=== PATIENT | female | born 1950 | race Caucasian/White ===

== ENCOUNTER 2020-02-25 08:48 | Inpatient (IN) ==
[2020-02-25] MEDS ORDERED: IOPAMIDOL 100 ML BOTTLE IV ONE (08:49)
[2020-02-25] MEDS ORDERED: 0.9 % SODIUM CHLORIDE 1,000 ML IV ONE (09:22)
[2020-02-25] MEDS ORDERED: LACTATED RINGERS 1,000 ML IV ONE (09:29)
[2020-02-25] MEDS ORDERED: ONDANSETRON 4 MG/2 ML VIAL IV ONE ×2 (09:29→13:25)
--- NOTE | 2020-02-25 09:33 | Emergency Department Note ---
Nausea/Vomiting/Diarrhea HPI General Chief complaint: Nausea/Vomiting/Diarrhea Stated complaint: vomiting Time Seen by Provider: 02/25/20 09:26 Source: patient Mode of arrival: ambulatory Limitations: no limitations History of Present Illness HPI Narrative: Narrative: This patient awoke in the night with some nausea and vomiting that has persisted this morning associated with watery diarrhea. No hematemesis hematochezia or melena. She is also having some abdominal cramping. She does have a history of bipolar disorder and has been having some trouble with manic episodes recently. She does have a caregiver here with her in the emergency room. They are little concerned about altered mental status but this patient seems reasonably alert to me. Patient does complain of slight shortness of breath but has had no cough and no chest pain. MD complaint: nausea, vomiting, diarrhea and abdominal pain Onset (ago): hour(s) Description of Vomiting: watery Description of Diarrhea: water Associated Abdominal Pain: Yes Location of pain: diffuse Severity: mild Quality: cramping Improves with: none Worsens with: none Associated symptoms: Reports shortness of breath Related Data Home Medications Medication Instructions Recorded Confirmed magnesium oxide 400 mg PO QAM tab 01/10/19 02/25/20 digoxin 125 mcg (0.125 mg) tablet 125 mcg PO QDAY 11/28/19 02/25/20 donepezil 10 mg tablet 10 mg PO QDAY 11/28/19 02/25/20 hydralazine 50 mg tablet 25 mg PO BID tab 11/28/19 02/25/20 memantine 5 mg tablet 5 mg PO BID 11/28/19 02/25/20 acetaminophen 325 mg tablet 650 mg PO QID 01/22/20 02/25/20 atorvastatin 10 mg tablet 10 mg PO QHS tab 01/22/20 02/25/20 docusate calcium 240 mg capsule 240 mg PO QHS 01/22/20 02/25/20 ergocalciferol (vitamin D2) 1,250 1,250 mcg PO Q48H 01/22/20 02/25/20 mcg (50,000 unit) capsule gabapentin 600 mg tablet 600 mg PO TID tab 01/22/20 02/25/20 levothyroxine 25 mcg capsule 25 mcg PO QAM cap 01/22/20 02/25/20 meloxicam 15 mg tablet 15 mg PO QAM tab 01/22/20 02/25/20 omeprazole 20 mg capsule,delayed 20 mg PO QAM cap 01/22/20 02/25/20 release oxybutynin chloride 15 mg 15 mg PO QAM tab 01/22/20 02/25/20 tablet,extended release 24 hr amantadine HCl 100 mg PO BID 02/25/20 02/25/20 benztropine 0.5 mg PO BID 02/25/20 02/25/20 lamotrigine 25 mg PO BID 02/25/20 02/25/20 losartan 25 mg PO BID 02/25/20 02/25/20 ziprasidone HCl 80 mg PO QPM 02/25/20 02/25/20 Allergies Allergy/AdvReac Type Severity Reaction Status Date / Time bacitracin Allergy Unknown Unknown Verified 02/25/20 08:52 [From Neosporin ([id number])] codeine Allergy Unknown Unknown Verified 02/25/20 08:52 divalproex sodium Allergy Unknown Unknown Verified 02/25/20 08:52 [From Depakote] doxycycline Allergy Unknown Unknown Verified 02/25/20 08:52 hydrocodone Allergy Unknown Unknown Verified 02/25/20 08:52 meperidine [From Demerol] Allergy Unknown Unknown Verified 02/25/20 08:52 milk Allergy Unknown Unknown Verified 02/25/20 08:52 Neomycin Allergy Unknown Unknown Verified 02/25/20 08:52 [From Neosporin ([id number])] olanzapine Allergy Unknown Unknown Verified 02/25/20 08:52 polymyxin B Allergy Unknown Unknown Verified 02/25/20 08:52 [From Neosporin ([id number])] sumatriptan [From Imitrex] Allergy Unknown Unknown Verified 02/25/20 08:52 seraquil Allergy Unknown Gum Uncoded 01/22/20 10:37 Irritation Review of Systems ROS ROS Narrative: Narrative: All systems ED: reviewed and negative except as stated. [facility] N[facility] Patient History Narrative: Narrative: Medical/Surgical/Family History All Active Problems (Updated 02/25/20 @ 14:41 by Dre Dunn MD) Acute UTI (Acute) Gastroenteritis (Acute) History of surgery (Acute) Anxiety disorder, unspecified (Acute) Essential (primary) hypertension (Acute) Unspecified chronic bronchitis (Acute) Post-traumatic stress disorder, chronic (Acute) Unspecified asthma, uncomplicated (Acute) Bipolar disorder, unspecified (Acute) Irritable bowel syndrome without diarrhea (Acute) Chronic SI joint pain (Acute) Coccygodynia (Acute) Sacroiliitis (Acute) Spondylosis without myelopathy or radiculopathy, lumbar region (Acute) Spondylosis without myelopathy or radiculopathy, lumbosacral region (Acute) Anorexia (Acute) Panic disorder with agoraphobia and moderate panic attacks (Acute) Bipolar disorder with psychotic features (Acute) Constipation (Chronic) Polyneuropathy (Chronic) Memory problem (Chronic) Hair loss (Chronic) Other constipation (Chronic) Hypothyroidism (Chronic) Mixed hyperlipidemia (Chronic) GERD (gastroesophageal reflux disease) (Chronic) Primary generalized (osteo)arthritis (Chronic) Vitamin D deficiency (Chronic) Osteoarthritis (Chronic) Mild cognitive impairment (Chronic) Stress incontinence, female (Chronic) Tobacco use (Chronic) Asthma (Chronic) IBS (irritable bowel syndrome) (Chronic) Trochanteric bursitis of both hips (Chronic) Low back pain (Chronic) Tardive dyskinesia (Chronic) Hiatal hernia (Chronic) Altered mental status (Chronic) Posttraumatic stress disorder (Chronic) Dependent personality disorder (Chronic) Panic disorder with agoraphobia (Chronic) Severe bipolar disorder with psychotic features (Chronic) Medical History (Updated 02/25/20 @ 14:41 by Dre Dunn MD) Altered mental status (Chronic) Anxiety disorder, unspecified (Acute) Asthma (Chronic) Bipolar disorder, unspecified (Acute) Chronic SI joint pain (Acute) Coccygodynia (Acute) Constipation (Chronic) Dependent personality disorder (Chronic) Essential (primary) hypertension (Acute) GERD (gastroesophageal reflux disease) (Chronic) Hair loss (Chronic) Hiatal hernia (Chronic) Hypothyroidism (Chronic) IBS (irritable bowel syndrome) (Chronic) Irritable bowel syndrome without diarrhea (Acute) Low back pain (Chronic) Memory problem (Chronic) Mild cognitive impairment (Chronic) Mixed hyperlipidemia (Chronic) Osteoarthritis (Chronic) Other constipation (Chronic) Panic disorder with agoraphobia (Chronic) Polyneuropathy (Chronic) Post-traumatic stress disorder, chronic (Acute) Posttraumatic stress disorder (Chronic) Primary generalized (osteo)arthritis (Chronic) Sacroiliitis (Acute) Severe bipolar disorder with psychotic features (Chronic) Spondylosis without myelopathy or radiculopathy, lumbar region (Acute) Spondylosis without myelopathy or radiculopathy, lumbosacral region (Acute) Stress incontinence, female (Chronic) Tardive dyskinesia (Chronic) Tobacco use (Chronic) Trochanteric bursitis of both hips (Chronic) Unspecified asthma, uncomplicated (Acute) Unspecified chronic bronchitis (Acute) Vitamin D deficiency (Chronic) Surgical History (Updated 01/22/20 @ 10:54 by Glenna Fernandez) History of colonoscopy (Chronic 07/24/15) History of shoulder surgery (Chronic) History of surgery (Acute) RFTC Oleg. L3-S1 w/sed 07/04/2019 MBB #2 Oleg. L3-S1 w/sed 05/08/2019 MBB #1 Rt. L3-S1 w/sed 03/05/2019 SI Joint Injection, Bilat w/o sed 12/20/2017 Hx of removal of ovary (Chronic) S/P bladder repair (Chronic) S/P hysterectomy (Chronic) Family History (Updated 01/04/19 @ 15:59 by Jessica Cuevas) Other No pertinent family history Social History Smoking Status: Current every day smoker Alcohol Intake Frequency: does not drink Substance Use: does not use Exam Narrative Narrative: Narrative: General Limitations: no limitations Head Head: atraumatic, normocephalic and normal inspection Eye Eye: Present normal appearance; Absent conjunctival injection ENT ENT: Present normal exam Chest Chest: Present normal inspection and symmetric chest wall rise Respiratory Respiratory: Present normal lung sounds bilaterally; Absent respiratory distress, rales/crackles and wheezes Cardiovascular Cardiovascular: Present regular rate, normal rhythm and normal heart sounds Adbominal Abdominal: Present soft and tenderness; Absent distention, guarding, rebound and rigidity Neurological Neurological: Present alert Psychiatric Psychiatric: Present flat affect Skin Skin: Present warm and dry; Absent diaphoresis Course Vital Signs Vital signs: Vital Signs Temperature 97.2 F 02/25/20 08:49 Pulse Rate 72 02/25/20 08:49 Respiratory Rate 18 02/25/20 08:49 Blood Pressure 137/69 02/25/20 08:49 Pulse Oximetry (%) 100 02/25/20 08:49 Temperature 97.2 F 02/25/20 08:49 Pulse Rate 63 02/25/20 12:36 Respiratory Rate 18 02/25/20 08:49 Blood Pressure 138/62 02/25/20 12:36 Pulse Oximetry (%) 99 02/25/20 12:36 MDM MDM Narrative Medical decision making narrative: Narrative: This patient does have a UTI and evidence of dehydration. CT scan of head and abdomen were negative. We did hydrate her and treat her with Levaquin. Does not appear to be septic. She will be admitted to the hospital. Lab Data Lab results reviewed: Yes I reviewed the patient's lab results. Result diagrams: 02/25/20 09:12 02/25/20 09:12 Labs: Lab Results 02/25/20 02/25/20 02/25/20 Range/Units 09:12 09:12 09:12 WBC 9.5 (4.50-11.00) K/mcL RBC 4.70 (3.59-5.38) M/mcL Hgb 13.8 (11.2-15.7) g/dL Hct 40.9 (34.1-44.9) % MCV 87.0 (80.0-100.0) fL MCH 29.4 (26.0-34.0) pg MCHC 33.7 (31.0-36.0) g/dL RDW 13.8 (11.5-14.5) % Plt Count 290 (140-440) K/mcL MPV 9.3 (7.4-10.4) fL Total Counted 100 Seg Neutrophils % 86 H (38-78) % Band Neutrophils % Not Reportable Lymphocytes % 10 L (15-49) % Monocytes % (Manual) 4 (1-12) % Platelet Estimate Normal (NORMAL) RBC Morphology Normal (NORMAL) VBG Lactic Acid (0.5-2.0) mmol/L Sodium 126 L (133-145) mmol/L Potassium 4.3 (3.3-5.1) mmol/L Chloride 85 L (96-108) mmol/L Carbon Dioxide 24 (22-30) mmol/L Anion Gap 17.0 H (8-16) BUN 9 (8-23) mg/dl Creatinine 0.6 (0.6-1.1) mg/dl GFR Calculation 94 Glucose 111 H (70-105) mg/dL Calcium 9.3 (8.6-10.4) mg/dl Total Bilirubin 0.5 (0.0-1.0) mg/dL AST 22 (0-37) U/l ALT 17 (0-40) U/l Alkaline Phosphatase 112 (39-117) U/L NT-Pro-B Natriuret Pep 4630.0 H (0-125) pg/ml Total Protein 6.9 (5.9-8.4) gm/dL Albumin 3.9 (3.2-5.2) gm/dL Globulin 3.0 (2.2-3.7) gm/dL Albumin/Globulin Ratio 1.3 (1.0-2.3) Lipase 12 (7-60) U/L Urine Color Urine Appearance Urine pH (5.0-9.0) Ur Specific [place] (1.000-1.035) Urine Protein (NEG) mg/dL Urine Glucose (UA) (NEG) mg/dL Urine Ketones (NEG) mg/dL Urine Occult Blood (<0.03) mg/dL Urine Nitrate (NEG) Urine Bilirubin (NEG) mg/dL Urine Urobilinogen (NEG) mg/dL Ur Leukocyte Esterase (NEG) /uL Urine RBC (0-1) /hpf Urine WBC (0-4) /hpf Ur Squamous Epith Cells (0-4) /hpf Urine Bacteria (0) /hpf Ur Culture Indicated? 02/25/20 02/25/20 Range/Units 09:44 10:31 WBC (4.50-11.00) K/mcL RBC (3.59-5.38) M/mcL Hgb (11.2-15.7) g/dL Hct (34.1-44.9) % MCV (80.0-100.0) fL MCH (26.0-34.0) pg MCHC (31.0-36.0) g/dL RDW (11.5-14.5) % Plt Count (140-440) K/mcL MPV (7.4-10.4) fL Total Counted Seg Neutrophils % (38-78) % Band Neutrophils % Lymphocytes % (15-49) % Monocytes % (Manual) (1-12) % Platelet Estimate (NORMAL) RBC Morphology (NORMAL) VBG Lactic Acid 1.1 (0.5-2.0) mmol/L Sodium (133-145) mmol/L Potassium (3.3-5.1) mmol/L Chloride (96-108) mmol/L Carbon Dioxide (22-30) mmol/L Anion Gap (8-16) BUN (8-23) mg/dl Creatinine (0.6-1.1) mg/dl GFR Calculation Glucose (70-105) mg/dL Calcium (8.6-10.4) mg/dl Total Bilirubin (0.0-1.0) mg/dL AST (0-37) U/l ALT (0-40) U/l Alkaline Phosphatase (39-117) U/L NT-Pro-B Natriuret Pep (0-125) pg/ml Total Protein (5.9-8.4) gm/dL Albumin (3.2-5.2) gm/dL Globulin (2.2-3.7) gm/dL Albumin/Globulin Ratio (1.0-2.3) Lipase (7-60) U/L Urine Color Yellow Urine Appearance Cloudy Urine pH 8.0 (5.0-9.0) Ur Specific [place] 1.005 (1.000-1.035) Urine Protein Neg (NEG) mg/dL Urine Glucose (UA) Negative (NEG) mg/dL Urine Ketones 20 A (NEG) mg/dL Urine Occult Blood 0.2 A (<0.03) mg/dL Urine Nitrate Pos A (NEG) Urine Bilirubin Neg (NEG) mg/dL Urine Urobilinogen Neg (NEG) mg/dL Ur Leukocyte Esterase 500 A (NEG) /uL Urine RBC 16 H (0-1) /hpf Urine WBC > 182 H (0-4) /hpf Ur Squamous Epith Cells 0 (0-4) /hpf Urine Bacteria Few A (0) /hpf Ur Culture Indicated? Yes Radiology Data Radiology results reviewed: Yes I reviewed the patient's radiology results. Discharge Plan Patient/Caregiver Discharge Instructions Pt seen by GENERAL INTERNAL MEDICINE DOCTOR/PA only: No Clinical Impression: Acute UTI, Gastroenteritis Patient Disposition: Xfer As Inpt ([facility]) Follow up with: Maral Palma ARNP [Primary Care Provider] - Prescriptions: No Action magnesium oxide 400 mg magnesium tablet 400 mg PO QAM RF: 0 memantine 5 mg tablet 5 mg PO BID RF: 0 digoxin 125 mcg (0.125 mg) tablet 125 mcg PO QDAY RF: 0 donepezil 10 mg tablet 10 mg PO QDAY RF: 0 hydralazine 50 mg tablet 25 mg PO BID RF: 0 acetaminophen 325 mg tablet 650 mg PO QID RF: 0 ergocalciferol (vitamin D2) 1,250 mcg (50,000 unit) capsule 1,250 mcg PO Q48H RF: 0 oxybutynin chloride 15 mg tablet extended release 24hr 15 mg PO QAM RF: 0 omeprazole 20 mg capsule,delayed release(DR/EC) 20 mg PO QAM RF: 0 levothyroxine 25 mcg capsule 25 mcg PO QAM RF: 0 gabapentin 600 mg tablet 600 mg PO TID RF: 0 atorvastatin 10 mg tablet 10 mg tablet 10 mg PO QHS RF: 0 meloxicam 15 mg tablet 15 mg PO QAM RF: 0 docusate calcium 240 mg capsule 240 mg PO QHS RF: 0 ziprasidone HCl 80 mg capsule 80 mg PO QPM RF: 0 benztropine 0.5 mg tablet 0.5 mg PO BID RF: 0 lamotrigine 25 mg tablet 25 mg PO BID RF: 0 amantadine HCl 100 mg Capsule 100 mg PO BID RF: 0 losartan 25 mg Tablet 25 mg PO BID RF: 0
[2020-02-25 09:53] LABS: Hematocrit 40.9 % (34.1-44.9); Hemoglobin 13.8 g/dL (11.2-15.7); Mean Corpuscular HGB Conc 33.7 g/dL (31.0-36.0); Mean Platelet Volume 9.3 fL (7.4-10.4); Platelet Count 290 K/mcL (140-440); Red Cell Distribution Width 13.8 % (11.5-14.5); WBC 9.5 K/mcL (4.50-11.00)
--- NOTE | 2020-02-25 09:57 | XRay Report ---
HISTORY: Short of breath FINDINGS: Overlying the costochondral junction of the right anterior first rib there is a vague 1 cm density. This could be calcification in the cartilage, parenchymal scar and underlying lung mass. The remainder the lung mcconnell are clear and well expanded. The heart size mediastinum and eugenio are normal. No pleural effusion is present. No prior study is available for comparison. IMPRESSION: Possible nodule in the right upper lobe. Additional workup is recommended with lateral chest x-ray and an apical lordotic view. Dr. Dunn was called with the results Interpreted and Authenticated by: Charles Jang 02/25/20
[2020-02-25 10:23] LABS: ALT/SGPT 17 U/l (0-40); AST/SGOT 22 U/l (0-37); Albumin 3.9 gm/dL (3.2-5.2); Albumin/Globulin Ratio 1.3 (1.0-2.3); Alkaline Phosphatase 112 U/L (39-117); Bilirubin,Total 0.5 mg/dL (0.0-1.0); Blood Urea Nitrogen 9 mg/dl (8-23); Calcium 9.3 mg/dl (8.6-10.4); Carbon Dioxide 24 mmol/L (22-30); Glomerular Filtration Rate 94; Glucose 111 mg/dL (70-105)
--- NOTE | 2020-02-25 10:24 | XRay Report ---
HISTORY: Port of breath, possible lung nodule in the right upper lobe seen on the preceding portable chest x-ray FINDINGS: The 1 cm nodular density overlying the costochondral junction of the right first rib on the preceding portable chest x-ray is no longer apparent. This was probably calcification of the cartilage of the rib. There is no evidence of an underlying lung mass. Incidentally noted is a moderate kyphotic curvature in the thoracic spine along with mild osteoarthritis. IMPRESSION: No evidence of a lung mass Interpreted and Authenticated by: Charles Jang 02/25/20
[2020-02-25 10:26] LABS: Chloride 85 mmol/L (96-108)
[2020-02-25 10:48] LABS: Lymphocytes % 10 % (15-49); Monocytes % (Manual) 4 % (1-12); Platelet Estimate NORMAL (NORMAL); RBC Morphology NORMAL (NORMAL); Segmented Neutrophils % 86 % (38-78)
[2020-02-25 11:44] LABS: Appearance,Urine CLOUDY; Bacteria,Urine FEW /hpf (0); Bilirubin,Urine NEG (NEG); Color,Urine YELLOW; Culture Indicated,Urine YES; Glucose,Urine (UA) NEGATIVE (NEG); Ketones,Urine 20 mg/dL (NEG); Leukocyte Esterase,Urine 500 /uL (NEG); Nitrate,Urine POS (NEG); Protein,Urine NEG (NEG); Specific Gravity,Urine 1.005 (1.000-1.035); Urine Blood 0.2 mg/dL (<0.03); Urine RBC 16 /hpf (0-1); Urine Squamous Epithelial Cell 0 /hpf (0-4); Urine WBC > 182 /hpf (0-4); Urobilinogen,Urine NEG (NEG)
[2020-02-25] MEDS ORDERED: LEVOFLOXACIN 750 MG/150 ML BAG IV ONE (11:53)
--- NOTE | 2020-02-25 14:01 | Cat Scan Report ---
History: Decreased level of consciousness, vomiting TECHNIQUE: The brain was imaged without contrast at 2.5 mm intervals. The radiation exposure was limited using dose reduction technology. FINDINGS: There is no evidence of infarct, hemorrhage, edema or mass effect. The ventricles and cisterns are normal. There is no significant atrophy. Bone windows show no skull lesion. There is moderate osteoarthritis in the temporal mandibular joints bilaterally, right worse than left. IMPRESSION: Normal brain Interpreted and Authenticated by: Charles Jang 02/25/20
--- NOTE | 2020-02-25 14:10 | Cat Scan Report ---
History: Abdominal pain nausea vomiting and diarrhea technique: Patient was imaged following intravenous but no oral contrast scanning during the portal venous phase and five minutes postinjection. Sagittal and coronal reformats were created. The radiation exposure was limited using dose reduction technology. FINDINGS: The lung bases are clear. There is a small hiatus hernia. The liver is normal in size. There are two small cysts, one is located inferiorly in segment 4B of the left lobe and the other is adjacent to the gallbladder segment five. These are both less than 1 cm in size. The liver is otherwise homogeneous. The gallbladder and bile ducts are normal. Pancreas is atrophic. There is no evidence of acute or chronic pancreatitis. The spleen is normal in size and homogeneous. The adrenals are normal. There is a 5 x 6 mm cyst centrally in the middle third of the left kidney. The kidneys are otherwise normal and there is no kidney stone, mass or hydronephrosis. Moderate amount calcified plaque is present in the aorta and iliac arteries. The aorta is normal in caliber. The bowel gas pattern is normal. The appendix is noninflamed. There is no evidence of diverticulitis inflammatory bowel disease or bowel obstruction. The uterus and ovaries are surgically absent. Urinary bladder is unopacified but appears normal. There is no mass, abscess or adenopathy or ascites are present within the abdomen or pelvis. There is a mild levoscoliotic curvature in the mid lumbar spine and mild arthritis. IMPRESSION: No acute abnormality Dr. Dunn was called with the results Interpreted and Authenticated by: Charles Jang 02/25/20
--- NOTE | 2020-02-25 14:59 | Internal Med History&Physical ---
HPI History of Present Illness Patient information: Note initiated : 02/25/20 at 2:51 pm Service Date, if different from initiated Date: [] Patient: Lena Baez a 69 y/o F admitted on for vomiting. Chief Complaint: [] History of present illness: Ms. Baez is a 69 year old F Mateo to the ED with nausea vomiting diarrhea. Patient does have history of mild cognitive impairment or early dementia. Patient is a poor historian. History is obtained from patient and chart as caregiver is unavailable at the moment. Sounds like she is*developed nausea vomiting yesterday and diarrhea. She describes the vomitus as yellow and clear. Diarrhea is watery and dark but no blood. She has a crampy abdominal pain. Per the family she has had some confusion. Per note she does have a history of at least mild cognitive impairment and sees Dr. Jasso and is on memory medications. Unable to tell if she is on new medication she seemed states she is on some new cardiac medications but cannot remember. She is on digoxin but unable to tell me if she has atrial fibrillation. In the ED she had a CT of the head and abdomen Jack which were unremarkable. She had urinalysis consistent with UTI. Patient does describe dysuria. Patient does live alone. Has occasional cough of clear sputum. Chest x-ray unremarkable. When I visited her she was alert and oriented x4 and in discussion with the nurse she seems to be clear but then occasionally seems confused. Review of Systems: Pertinent positives as above plus occasional headaches and occasional fever chills. Remaining 10 point review of system reviewed negative [facility] Medical History (Updated 02/25/20 @ 14:41 by Dre Dunn MD) Altered mental status (Chronic) Anxiety disorder, unspecified (Acute) Asthma (Chronic) Bipolar disorder, unspecified (Acute) Chronic SI joint pain (Acute) Coccygodynia (Acute) Constipation (Chronic) Dependent personality disorder (Chronic) Essential (primary) hypertension (Acute) GERD (gastroesophageal reflux disease) (Chronic) Hair loss (Chronic) Hiatal hernia (Chronic) Hypothyroidism (Chronic) IBS (irritable bowel syndrome) (Chronic) Irritable bowel syndrome without diarrhea (Acute) Low back pain (Chronic) Memory problem (Chronic) Mild cognitive impairment (Chronic) Mixed hyperlipidemia (Chronic) Osteoarthritis (Chronic) Other constipation (Chronic) Panic disorder with agoraphobia (Chronic) Polyneuropathy (Chronic) Post-traumatic stress disorder, chronic (Acute) Posttraumatic stress disorder (Chronic) Primary generalized (osteo)arthritis (Chronic) Sacroiliitis (Acute) Severe bipolar disorder with psychotic features (Chronic) Spondylosis without myelopathy or radiculopathy, lumbar region (Acute) Spondylosis without myelopathy or radiculopathy, lumbosacral region (Acute) Stress incontinence, female (Chronic) Tardive dyskinesia (Chronic) Tobacco use (Chronic) Trochanteric bursitis of both hips (Chronic) Unspecified asthma, uncomplicated (Acute) Unspecified chronic bronchitis (Acute) Vitamin D deficiency (Chronic) Surgical History (Updated 01/22/20 @ 10:54 by Glenna Fernandez) History of colonoscopy (Chronic 07/24/15) History of shoulder surgery (Chronic) History of surgery (Acute) RFTC Oleg. L3-S1 w/sed 07/04/2019 MBB #2 Oleg. L3-S1 w/sed 05/08/2019 MBB #1 Rt. L3-S1 w/sed 03/05/2019 SI Joint Injection, Bilat w/o sed 12/20/2017 Hx of removal of ovary (Chronic) S/P bladder repair (Chronic) S/P hysterectomy (Chronic) Family History (Updated 01/04/19 @ 15:59 by Jessica Cuevas) Other No pertinent family history Social History (Updated 12/24/19 @ 11:47 by Melissa David DO) household members: alone marital status: occupational status: retired physical activity: none smoking status: Current every day smoker tobacco type: cigarettes per day: 10 pack-years: 15 counseling given: provider counseling alcohol intake frequency: does not drink substance use type: does not use MEDS/ALLERGIES Home Medications and Allergies Home Medications Medication Instructions Recorded Confirmed Type magnesium oxide 400 mg PO QAM tab 01/10/19 02/25/20 History digoxin 125 mcg (0.125 mg) tablet 125 mcg PO QDAY 11/28/19 02/25/20 History donepezil 10 mg tablet 10 mg PO QDAY 11/28/19 02/25/20 History hydralazine 50 mg tablet 25 mg PO BID tab 11/28/19 02/25/20 History memantine 5 mg tablet 5 mg PO BID 11/28/19 02/25/20 History acetaminophen 325 mg tablet 650 mg PO QID 01/22/20 02/25/20 History atorvastatin 10 mg tablet 10 mg PO QHS tab 01/22/20 02/25/20 History docusate calcium 240 mg capsule 240 mg PO QHS 01/22/20 02/25/20 History ergocalciferol (vitamin D2) 1,250 1,250 mcg PO Q48H 01/22/20 02/25/20 History mcg (50,000 unit) capsule gabapentin 600 mg tablet 600 mg PO TID tab 01/22/20 02/25/20 History levothyroxine 25 mcg capsule 25 mcg PO QAM cap 01/22/20 02/25/20 History meloxicam 15 mg tablet 15 mg PO QAM tab 01/22/20 02/25/20 History omeprazole 20 mg capsule,delayed 20 mg PO QAM cap 01/22/20 02/25/20 History release oxybutynin chloride 15 mg 15 mg PO QAM tab 01/22/20 02/25/20 History tablet,extended release 24 hr amantadine HCl 100 mg PO BID 02/25/20 02/25/20 History benztropine 0.5 mg PO BID 02/25/20 02/25/20 History lamotrigine 25 mg PO BID 02/25/20 02/25/20 History losartan 25 mg PO BID 02/25/20 02/25/20 History ziprasidone HCl 80 mg PO QPM 02/25/20 02/25/20 History Allergies Allergy/AdvReac Type Severity Reaction Status Date / Time bacitracin Allergy Unknown Unknown Verified 02/25/20 08:52 [From Neosporin ([id number])] codeine Allergy Unknown Unknown Verified 02/25/20 08:52 divalproex sodium Allergy Unknown Unknown Verified 02/25/20 08:52 [From Depakote] doxycycline Allergy Unknown Unknown Verified 02/25/20 08:52 hydrocodone Allergy Unknown Unknown Verified 02/25/20 08:52 meperidine [From Demerol] Allergy Unknown Unknown Verified 02/25/20 08:52 milk Allergy Unknown Unknown Verified 02/25/20 08:52 Neomycin Allergy Unknown Unknown Verified 02/25/20 08:52 [From Neosporin ([id number])] olanzapine Allergy Unknown Unknown Verified 02/25/20 08:52 polymyxin B Allergy Unknown Unknown Verified 02/25/20 08:52 [From Neosporin ([id number])] sumatriptan [From Imitrex] Allergy Unknown Unknown Verified 02/25/20 08:52 seraquil Allergy Unknown Gum Uncoded 01/22/20 10:37 Irritation EXAM Constitutional Vitals: Temp Pulse Resp BP Pulse Ox 97.2 F 63 18 134/73 99 02/25/20 08:49 02/25/20 12:36 02/25/20 08:49 02/25/20 14:46 02/25/20 12:36 Exam: General: Alert, Awake, No acute Distress Eyes/N/T: EOMI, PERRL, dry MM Head/Neck: neck supple, normocephalic atraumatic CV: RRR, 2/6SM Pulm: Clear b/l, no wheezing/rhonchi/rales Abd: soft, nontender, +BS x4 Ext: no clubbing/cyanosis/edema Neuro: A&Ox4, no focal deficits, moves all extremities, CN 2-12 grossly intact, symmetrical strength b/l upper/lower, sensations intact b/l upper/lower Skin: warm/dry DATA Data Completed and Pending Labs on day of discharge: Labs from last 24 hours 02/25/20 02/25/20 02/25/20 10:31 09:44 09:12 WBC RBC Hgb Hct MCV MCH MCHC RDW Plt Count MPV Total Counted Seg Neutrophils % Band Neutrophils % Lymphocytes % Monocytes % (Manual) Platelet Estimate RBC Morphology VBG Lactic Acid 1.1 Sodium Potassium Chloride Carbon Dioxide Anion Gap BUN Creatinine GFR Calculation Glucose Calcium Total Bilirubin AST ALT Alkaline Phosphatase NT-Pro-B Natriuret Pep 4630.0 H Total Protein Albumin Globulin Albumin/Globulin Ratio Lipase 12 Urine Color Yellow Urine Appearance Cloudy Urine pH 8.0 Ur Specific Towner 1.005 Urine Protein Neg Urine Glucose (UA) Negative Urine Ketones 20 A Urine Occult Blood 0.2 A Urine Nitrate Pos A Urine Bilirubin Neg Urine Urobilinogen Neg Ur Leukocyte Esterase 500 A Urine RBC 16 H Urine WBC > 182 H Ur Squamous Epith Cells 0 Urine Bacteria Few A Ur Culture Indicated? Yes 02/25/20 02/25/20 09:12 09:12 WBC 9.5 RBC 4.70 Hgb 13.8 Hct 40.9 MCV 87.0 MCH 29.4 MCHC 33.7 RDW 13.8 Plt Count 290 MPV 9.3 Total Counted 100 Seg Neutrophils % 86 H Band Neutrophils % Not Reportable Lymphocytes % 10 L Monocytes % (Manual) 4 Platelet Estimate Normal RBC Morphology Normal VBG Lactic Acid Sodium 126 L Potassium 4.3 Chloride 85 L Carbon Dioxide 24 Anion Gap 17.0 H BUN 9 Creatinine 0.6 GFR Calculation 94 Glucose 111 H Calcium 9.3 Total Bilirubin 0.5 AST 22 ALT 17 Alkaline Phosphatase 112 NT-Pro-B Natriuret Pep Total Protein 6.9 Albumin 3.9 Globulin 3.0 Albumin/Globulin Ratio 1.3 Lipase Urine Color Urine Appearance Urine pH Ur Specific Towner Urine Protein Urine Glucose (UA) Urine Ketones Urine Occult Blood Urine Nitrate Urine Bilirubin Urine Urobilinogen Ur Leukocyte Esterase Urine RBC Urine WBC Ur Squamous Epith Cells Urine Bacteria Ur Culture Indicated? A/P Narrative A/P Narrative: A: *UTI: *AMS(confusion) superimposed on underlying cognitive impairment/early dementia: -follows with Dr. Gonzalez *Volume depletion: *N/V/D: Nonbloody, watery. likely gastroenteritis *Bipolar/PTSD: *Parkinsonism: *HTN: on hydralazine/ARB *Hypothyroidism: *GERD: *?PAF: on digoxin * P: -Rocephin pending UC -IVF -Antiemetics, stool studies pending -[employer] records -cont psych meds - -pt/ot -CM for placement -ppx: Lovenox/home PPI Time Spent With Patient Time: Total time spent is greater than 50% in coordination of care (as documented) at patient's floor/unit and/or counseling patient:
[2020-02-25 16:16] LABS: Digoxin 0.7 ng/mL
[2020-02-25] MEDS ORDERED: MAGNESIUM SULFATE 2 GM/50 ML BAG IV PRN (16:41)
[2020-02-25] MEDS ORDERED: METOCLOPRAMIDE 10 MG/2 ML VIAL IV PRN (16:41)
[2020-02-25] MEDS ORDERED: POTASSIUM CHLORIDE 20 MEQ TABLET PO PRN ×2 (16:41)
[2020-02-25] MEDS ORDERED: diphenhydrAMINE 50 MG/ML VIAL IV PRN (16:41)
[2020-02-25] MEDS ORDERED: 0.9 % SODIUM CHLORIDE 1,000 ML IV SCH (16:41)
[2020-02-25] MEDS ORDERED: IPRATROPIUM/ALBUTEROL 3 ML AMPUL.NEB NEB PRN (16:41)
[2020-02-25] MEDS ORDERED: POTASSIUM CHLORIDE 40 MEQ in DEXTROSE 5% IN WATER 500 ML IV PRN (16:41)
[2020-02-25] MEDS ORDERED: SENNOSIDES 1 TABLET PO PRN (16:41)
[2020-02-25] MEDS ORDERED: cefTRIAXone 1 GM in DEXTROSE 5% IN WATER 50 ML IV SCH (16:41)
[2020-02-25] MEDS: 0.9 % SODIUM CHLORIDE 10 ML SYRINGE IV SCH ×2 (17:34→22:13)
[2020-02-25] MEDS: ACETAMINOPHEN 325 MG TABLET PO SCH ×3 (17:38→22:02)
[2020-02-25] MEDS: cefTRIAXone 1 GM VIAL IV SCH (17:38)
[2020-02-25] MEDS: ZIPRASIDONE HCL 80 MG PO SCH (22:02)
[2020-02-25] MEDS: MEMANTINE 10 MG TABLET PO SCH (22:09)
[2020-02-25] MEDS: lamoTRIgine 25 MG TABLET PO SCH (22:10)
[2020-02-25] MEDS: GABAPENTIN 300 MG CAPSULE PO SCH (22:10)
[2020-02-25] MEDS: ATORVASTATIN 10 MG TABLET PO SCH (22:10)
[2020-02-25] MEDS: BENZTROPINE 1 MG TABLET PO SCH (22:10)
[2020-02-25] MEDS: hydrALAZINE 25 MG TABLET PO SCH (22:10)
[2020-02-25] MEDS: AMANTADINE HCL 100 MG CAPSULE PO SCH (22:10)
[2020-02-25] MEDS: DOCUSATE SODIUM 100 MG CAPSULE PO SCH (22:11)
[2020-02-25] MEDS: LOSARTAN 25 MG TABLET PO SCH (22:12)
[2020-02-25] MEDS: ONDANSETRON 4 MG/2 ML VIAL IV PRN (23:20)
[2020-02-26] MEDS: 0.9 % SODIUM CHLORIDE 10 ML SYRINGE IV SCH ×3 (04:42→21:28)
[2020-02-26] MEDS: OMEPRAZOLE 20 MG CAPSULE PO SCH (07:34)
[2020-02-26] MEDS: LEVOTHYROXINE 25 MCG TABLET PO SCH (07:34)
--- NOTE | 2020-02-26 07:46 | Internal Med Progress Note ---
SUBJECTIVE Subjective Patient information: Note initiated : 02/26/20 at 7:42 am Service Date, if different from initiated Date: [] Patient: Lena Baez a 69 y/o F admitted on 02/25/20 for vomiting. Chief Complaint: [] Interval history: History of present illness: Ms. Baez is a 69 year old F Mate[place] to the ED with nausea vomiting diarrhea. Patient does have history of mild cognitive impairment or early dementia. Patient is a poor historian. History is obtained from patient and chart as caregiver is unavailable at the moment. Sounds like she is*developed nausea vomiting yesterday and diarrhea. She describes the vomitus as yellow and clear. Diarrhea is watery and dark but no blood. She has a crampy abdominal pain. Per the family she has had some confusion. Per note she does have a history of at least mild cognitive impairment and saw Dr. Gómez'abhay in past and now Dr. gonzalez for memory medications. Unable to tell if she is on new medication she seemed states she is on some new cardiac medications but cannot remember. She is on digoxin but unable to tell me if she has atrial fibrillation. In the ED she had a CT of the head and abdomen Jack which were unremarkable. She had urinalysis consistent with UTI. Patient does describe dysuria. Patient does live alone. Has occasional cough of clear sputum. Chest x-ray unremarkable. When I visited her she was alert and oriented x4 and in discussion with the nurse she seems to be clear but then occasionally seems confused. 02/25 Patient had a formed stool last night, unable to test for C. difficile. No issues overnight. Patient answering very few of my questions otherwise just looks at me. Review of Systems: denies headache/fever/chills/nausea/vomiting/chest or abdominal pain/cough/dyspnea/diarrhea. Otherwise see above. Constitutional Vitals: Vital Signs Temp Pulse Resp BP Pulse Ox 99.1 F H 76 12 128/64 98 02/26/20 04:54 02/26/20 04:54 02/26/20 04:54 02/26/20 04:54 02/26/20 04:54 Period Temp Pulse Resp BP Sys/Brito Pulse Ox Last 24 Hr 97.2 F-99.9 F 63-82 12-18 122-143/54-77 92-100 Intake and Output 08/05/0602/26/20 02/26/20 21:59 05:59 13:59 Intake Total 150 1200 Output Total 250 Balance 150 950 Weight 50.802 kg Intake & Output: Intake & Output 02/25/20 02/26/20 02/26/20 21:59 05:59 13:59 Intake Total 150 1200 Output Total 250 Balance 150 950 Weight 50.802 kg Intake: IV 150 1000 Sodium Chloride 0.9% 1,000 ml @ 1000 75 mls/hr IV .[id number] [facility] Rx#: [id number] Oral 200 Output: Void Amount 250 Other: Urine Appearance Cloudy Urine Color Bright Yellow Stool Size Small Stool Color Brown Stool Consistency Soft Formed # Unmeasured Emesis 2 # Bowel Movements 1 # Emeses 2 Exam: General: Alert, Awake, No acute Distress Eyes/N/T: EOMI, Head/Neck: neck supple, CV: RRR, 2/6SM Pulm: Clear b/l, no wheezing/rhonchi/rales Abd: soft, nontender, +BS x4 Ext: no clubbing/cyanosis/edema Neuro: A&Ox4, no focal deficits, moves all extremities, Skin: warm/dry OBJ DATA Labs CBC & Chem 7: 02/25/20 09:12 02/25/20 09:12 Labs: Abnormal Lab Results 02/25/20 02/25/20 02/25/20 10:31 09:12 09:12 Seg Neutrophils % Lymphocytes % Sodium Chloride Anion Gap Glucose NT-Pro-B Natriuret Pep TSH 0.10 L Free T4 2.00 H Urine Ketones 20 A Urine Occult Blood 0.2 A Urine Nitrate Pos A Ur Leukocyte Esterase 500 A Urine RBC 16 H Urine WBC > 182 H Urine Bacteria Few A 02/25/20 02/25/20 02/25/20 09:12 09:12 09:12 Seg Neutrophils % 86 H Lymphocytes % 10 L Sodium 126 L Chloride 85 L Anion Gap 17.0 H Glucose 111 H NT-Pro-B Natriuret Pep 4630.0 H TSH Free T4 Urine Ketones Urine Occult Blood Urine Nitrate Ur Leukocyte Esterase Urine RBC Urine WBC Urine Bacteria Meds: Medications Acetaminophen (Tylenol) 650 mg PO QID [facility] Last Admin: 02/25/20 22:02 Dose: Not Given Documented by: Albuterol/Ipratropium (Duoneb) 3 ml NEB Q4HP PRN PRN Reason: Shortness Of Breath Amantadine HCl (Amantadine) 100 mg PO BID [facility] Last Admin: 02/25/20 22:10 Dose: 100 mg Documented by: Atorvastatin Calcium (Lipitor) 10 mg PO HS [facility] Last Admin: 02/25/20 22:10 Dose: 10 mg Documented by: Benztropine Mesylate (Cogentin) 0.5 mg PO BID [facility] Last Admin: 02/25/20 22:10 Dose: 0.5 mg Documented by: Ceftriaxone Sodium (Rocephin) 1 gm IV DAILY [facility] Last Admin: 02/25/20 17:38 Dose: 1 gm Documented by: Digoxin (Lanoxin) 125 mcg PO DAILY@1400 [facility] Diphenhydramine HCl (Benadryl) 25 mg IV Q4-6HP PRN PRN Reason: Nausea Docusate Sodium (Colace) 200 mg PO HS [facility] Last Admin: 02/25/20 22:11 Dose: Not Given Documented by: Donepezil HCl (Aricept) 10 mg PO QDAY [facility] Enoxaparin Sodium (Lovenox) 40 mg SQ DAILY [facility] Gabapentin (Neurontin) 600 mg PO TID [facility] Last Admin: 02/25/20 22:10 Dose: 600 mg Documented by: Hydralazine HCl (Apresoline) 25 mg PO BID [facility] Last Admin: 02/25/20 22:10 Dose: 25 mg Documented by: Potassium Chloride 40 meq/ (Dextrose) 520 mls @ 130 mls/hr IV UD PRN PRN Reason: Potassium < 3 Magnesium Sulfate (Magnesium Sulfate) 2 gm in 50 mls @ 50 mls/hr IV UD PRN PRN Reason: Magnesium </= 1.6 Lamotrigine (Lamictal) 25 mg PO BID [facility] Last Admin: 02/25/20 22:10 Dose: 25 mg Documented by: Levothyroxine Sodium (Synthroid) 25 mcg PO QAMAC [facility] Last Admin: 02/26/20 07:34 Dose: 25 mcg Documented by: Losartan Potassium (Cozaar) 25 mg PO BID [facility] Last Admin: 02/25/20 22:12 Dose: 25 mg Documented by: Memantine (Namenda) 5 mg PO BID [facility] Last Admin: 02/25/20 22:09 Dose: 5 mg Documented by: Metoclopramide HCl (Reglan) 10 mg IV Q6HP PRN PRN Reason: Nausea And Vomiting Last Admin: 02/25/20 18:02 Dose: 10 mg Documented by: Omeprazole (Prilosec) 20 mg PO ACB [facility] Last Admin: 02/26/20 07:34 Dose: 20 mg Documented by: Ondansetron HCl (Zofran) 4 mg IV Q4HP PRN PRN Reason: Nausea And Vomiting Last Admin: 02/25/20 23:20 Dose: 4 mg Documented by: Oxybutynin Chloride (Ditropan Xl) 15 mg PO QAM JHOAN Ziprasidone Hcl 80 (Mg) 1 dose PO QPM [facility] Last Admin: 02/25/20 22:02 Dose: Not Given Documented by: Polyethylene Glycol (Miralax) 17 gm PO DAILYP PRN PRN Reason: Constipation Potassium Chloride (Kdur) 40 meq PO UD PRN PRN Reason: Potssium is 3-3.5 Potassium Chloride (Kdur) 40 meq PO UD PRN PRN Reason: Potassium < 3 Senna (Senokot) 2 tab PO DAILYP PRN PRN Reason: Constipation Sodium Chloride (Saline Flush) 10 ml IV Q8 [facility] Last Admin: 02/26/20 04:42 Dose: 10 ml Documented by: A/P Narrative A/P Narrative: A: *UTI: *AMS(confusion) superimposed on underlying cognitive impairment/early dementia: -follows with Dr. Gonzalez -CT brain neg *Volume depletion: *N/V/D: Nonbloody, watery. likely gastroenteritis -no fecal wbc, no diarrhea here, no n/v here *Bipolar/PTSD: *Parkinsonism: *HTN: on hydralazine/ARB *Hypothyroidism: on levothyroxine @ 25mcg daily with TSH 0.10 and T4 free 2.0 *GERD: *?PAF: on digoxin *Hyponatremia: P: -Rocephin pending UC -IVF -Antiemetics, stool studies pending -Transportation Coordinator records, ?Dr Joyner -cont psych meds -hold levothyroxine and f/u outpt -pt/ot -CM for placement -ppx: Lovenox/home PPI Time Spent With Patient Time: Total time spent is greater than 50% in coordination of care (as documented) at patient's floor/unit and/or counseling patient: QUALITY VTE Deep Vein Thrombosis/Pulmonary Embolism Present on Admission: No
[2020-02-26 08:18] LABS: Basophils # (Auto) 0.05 K/mcL (0.00-0.30); Basophils % (Auto) 0.7 % (0.0-2.0); Eosinophils # (Auto) 0.02 K/mcL (0.00-0.70); Eosinophils % (Auto) 0.3 % (0.0-7.0); Granulocytes % (Auto) 54.4 % (38.0-78.0); Hematocrit 34.1 % (34.1-44.9); Hemoglobin 11.5 g/dL (11.2-15.7); Lymphocytes # (Auto) 2.04 K/mcL (1.50-4.80); Lymphocytes % (Auto) 28.8 % (15.5-49.0); Mean Corpuscular HGB Conc 33.7 g/dL (31.0-36.0); Mean Platelet Volume 9.5 fL (7.4-10.4); Monocytes # (Auto) 1.12 K/mcL (0.10-0.90); Monocytes % (Auto) 15.8 % (1.0-12.0); Platelet Count 292 K/mcL (140-440); RBC 3.92 M/mcL (3.59-5.38); WBC 7.1 K/mcL (4.50-11.00)
[2020-02-26 08:32] LABS: ALT/SGPT 13 U/l (0-40); AST/SGOT 17 U/l (0-37); Albumin 3.2 gm/dL (3.2-5.2); Alkaline Phosphatase 86 U/L (39-117); Bilirubin,Direct < 0.2 mg/dL (0.0-0.3); Bilirubin,Total 0.2 mg/dL (0.0-1.0); Calcium 8.5 mg/dl (8.6-10.4); Carbon Dioxide 24 mmol/L (22-30); Glomerular Filtration Rate 94; Glucose 91 mg/dL (70-105); Lactate Dehydrogenase 168 U/L (94-250); Triglycerides 76 mg/dl (<150)
[2020-02-26 08:42] LABS: Albumin/Globulin Ratio 1.4 (1.0-2.3); Blood Urea Nitrogen 7 mg/dl (8-23); Chloride 97 mmol/L (96-108); Globulin 2.3 gm/dL (2.2-3.7); Phosphorous 2.2 mg/dL (2.7-4.5)
[2020-02-26] MEDS: ENOXAPARIN 40 MG/0.4 ML SYRINGE SQ SCH (09:18)
[2020-02-26] MEDS: GABAPENTIN 300 MG CAPSULE PO SCH ×3 (09:18→21:26)
[2020-02-26] MEDS: BENZTROPINE 1 MG TABLET PO SCH ×2 (09:18→21:27)
[2020-02-26] MEDS: ACETAMINOPHEN 325 MG TABLET PO SCH ×4 (09:19→21:26)
[2020-02-26] MEDS: hydrALAZINE 25 MG TABLET PO SCH ×2 (09:19→21:26)
[2020-02-26] MEDS: lamoTRIgine 25 MG TABLET PO SCH ×2 (09:19→21:26)
[2020-02-26] MEDS: LOSARTAN 25 MG TABLET PO SCH ×2 (09:19→21:26)
[2020-02-26] MEDS: MEMANTINE 10 MG TABLET PO SCH ×2 (09:19→21:27)
[2020-02-26] MEDS: DONEPEZIL 10 MG TABLET PO SCH (09:19)
[2020-02-26] MEDS: OXYBUTYNIN CHLORIDE 5 MG TAB.XL.24H PO SCH (09:19)
[2020-02-26] MEDS: cefTRIAXone 1 GM VIAL IV SCH (09:33)
[2020-02-26] MEDS: AMANTADINE HCL 100 MG CAPSULE PO SCH ×2 (09:35→21:27)
[2020-02-26] MEDS: ONDANSETRON 4 MG/2 ML VIAL IV PRN (10:35)
[2020-02-26] MEDS: DIGOXIN 125 MCG TABLET PO SCH (14:09)
[2020-02-26] MEDS: ATORVASTATIN 10 MG TABLET PO SCH (21:27)
[2020-02-26] MEDS: ZIPRASIDONE HCL 80 MG PO SCH (21:28)
[2020-02-26] MEDS: DOCUSATE SODIUM 100 MG CAPSULE PO SCH (21:28)
[2020-02-27] MEDS: 0.9 % SODIUM CHLORIDE 10 ML SYRINGE IV SCH ×3 (04:30→20:22)
--- NOTE | 2020-02-27 07:53 | Internal Med Progress Note ---
SUBJECTIVE Subjective Patient information: Note initiated : 02/27/20 at 7:49 am Service Date, if different from initiated Date: [] Patient: Lena Baez a 69 y/o F admitted on 02/25/20 for vomiting. Chief Complaint: [] Interval history: History of present illness: Ms. Baez is a 69 year old F Mateo to the ED with nausea vomiting diarrhea. Patient does have history of mild cognitive impairment or early dementia. Patient is a poor historian. History is obtained from patient and chart as caregiver is unavailable at the moment. Sounds like she is*developed nausea vomiting yesterday and diarrhea. She describes the vomitus as yellow and clear. Diarrhea is watery and dark but no blood. She has a crampy abdominal pain. Per the family she has had some confusion. Per note she does have a history of at least mild cognitive impairment and saw Dr. Gómez'abhay in past and now Dr. gonzalez for memory medications. Unable to tell if she is on new medication she seemed states she is on some new cardiac medications but cannot remember. She is on digoxin but unable to tell me if she has atrial fibrillation. In the ED she had a CT of the head and abdomen Jack which were unremarkable. She had urinalysis consistent with UTI. Patient does describe dysuria. Patient does live alone. Has occasional cough of clear sputum. Chest x-ray unremarkable. When I visited her she was alert and oriented x4 and in discussion with the nurse she seems to be clear but then occasionally seems confused. 02/25 Patient had a formed stool last night, unable to test for C. difficile. No issues overnight. Patient answering very few of my questions otherwise just looks at me. 02/26 Slept well. Seems to be feeling better today. Has occasional headache but otherwise no complaints. Review of Systems: denies fever/chills/nausea/vomiting/chest or abdominal pain/cough/dyspnea/diarrhea. Otherwise see above. Constitutional Vitals: Vital Signs Temp Pulse Resp BP Pulse Ox 98.1 F 70 16 126/69 92 02/27/20 07:14 02/27/20 07:14 02/27/20 07:14 02/27/20 07:14 02/27/20 07:14 Period Temp Pulse Resp BP Sys/Brito Pulse Ox Last 24 Hr 98.1 F-99.2 F 61-75 12-16 121-140/62-77 91-94 Intake and Output 02/26/20 02/27/20 02/27/20 21:59 05:59 13:59 Intake Total 780 0 Output Total 1002 Balance 780 -1002 Weight 51.71 kg Intake & Output: Intake & Output 02/26/20 02/27/20 02/27/20 21:59 05:59 13:59 Intake Total 780 0 Output Total 1002 Balance 780 -1002 Weight 51.71 kg Intake: Oral 780 0 Output: Void Amount 1000 # of times incontinent of urine 2 Other: Meal Dinner Percent of Meal Consumed 50% Feeding Ability Independent Urine Appearance Clear Urine Color Bright Yellow Exam: General: Alert, Awake, No acute Distress Eyes/N/T: EOMI, Head/Neck: neck supple, CV: RRR, 2/6SM Pulm: Clear b/l, no wheezing/rhonchi/rales Abd: soft, nontender, +BS x4 Ext: no clubbing/cyanosis/edema Neuro: A&Ox4, no focal deficits, moves all extremities, Skin: warm/dry OBJ DATA Labs CBC & Chem 7: 02/26/20 05:55 02/27/20 06:08 Labs: Abnormal Lab Results 02/26/20 02/26/20 02/25/20 05:55 05:55 10:31 [place] % (Auto) 15.8 H [place] # (Auto) 1.12 H Seg Neutrophils % Lymphocytes % Sodium Chloride Anion Gap BUN 7 L Glucose Calcium 8.5 L Phosphorus 2.2 L NT-Pro-B Natriuret Pep Total Protein 5.5 L TSH Free T4 Urine Ketones 20 A Urine Occult Blood 0.2 A Urine Nitrate Pos A Ur Leukocyte Esterase 500 A Urine RBC 16 H Urine WBC > 182 H Urine Bacteria Few A 02/25/20 02/25/20 02/25/20 09:12 09:12 09:12 [place] % (Auto) [place] # (Auto) Seg Neutrophils % Lymphocytes % Sodium Chloride Anion Gap BUN Glucose Calcium Phosphorus NT-Pro-B Natriuret Pep 4630.0 H Total Protein TSH 0.10 L Free T4 2.00 H Urine Ketones Urine Occult Blood Urine Nitrate Ur Leukocyte Esterase Urine RBC Urine WBC Urine Bacteria 02/25/20 02/25/20 09:12 09:12 [place] % (Auto) [place] # (Auto) Seg Neutrophils % 86 H Lymphocytes % 10 L Sodium 126 L Chloride 85 L Anion Gap 17.0 H BUN Glucose 111 H Calcium Phosphorus NT-Pro-B Natriuret Pep Total Protein TSH Free T4 Urine Ketones Urine Occult Blood Urine Nitrate Ur Leukocyte Esterase Urine RBC Urine WBC Urine Bacteria Meds: Medications Acetaminophen (Tylenol) 650 mg PO QID [facility] Last Admin: 02/26/20 21:26 Dose: 650 mg Documented by: Albuterol/Ipratropium (Duoneb) 3 ml NEB Q4HP PRN PRN Reason: Shortness Of Breath Amantadine HCl (Amantadine) 100 mg PO BID [facility] Last Admin: 02/26/20 21:27 Dose: 100 mg Documented by: Atorvastatin Calcium (Lipitor) 10 mg PO [facility] Last Admin: 02/26/20 21:27 Dose: 10 mg Documented by: Benztropine Mesylate (Cogentin) 0.5 mg PO BID [facility] Last Admin: 02/26/20 21:27 Dose: 0.5 mg Documented by: Ceftriaxone Sodium (Rocephin) 1 gm IV DAILY [facility] Last Admin: 02/26/20 09:33 Dose: 1 gm Documented by: Digoxin (Lanoxin) 125 mcg PO DAILY@1400 [facility] Last Admin: 02/26/20 14:09 Dose: 125 mcg Documented by: Diphenhydramine HCl (Benadryl) 25 mg IV Q4-6HP PRN PRN Reason: Nausea Docusate Sodium (Colace) 200 mg PO [facility] Last Admin: 02/26/20 21:28 Dose: Not Given Documented by: Donepezil HCl (Aricept) 10 mg PO QDAY [facility] Last Admin: 02/26/20 09:19 Dose: 10 mg Documented by: Enoxaparin Sodium (Lovenox) 40 mg SQ DAILY [facility] Last Admin: 02/26/20 09:18 Dose: 40 mg Documented by: Gabapentin (Neurontin) 600 mg PO TID [facility] Last Admin: 02/26/20 21:26 Dose: 600 mg Documented by: Hydralazine HCl (Apresoline) 25 mg PO BID [facility] Last Admin: 02/26/20 21:26 Dose: 25 mg Documented by: Potassium Chloride 40 meq/ (Dextrose) 520 mls @ 130 mls/hr IV UD PRN PRN Reason: Potassium < 3 Magnesium Sulfate (Magnesium Sulfate) 2 gm in 50 mls @ 50 mls/hr IV UD PRN PRN Reason: Magnesium </= 1.6 Lamotrigine (Lamictal) 25 mg PO BID [facility] Last Admin: 02/26/20 21:26 Dose: 25 mg Documented by: Levothyroxine Sodium (Synthroid) 25 mcg PO QAMAC [facility] Last Admin: 02/26/20 07:34 Dose: 25 mcg Documented by: Losartan Potassium (Cozaar) 25 mg PO BID [facility] Last Admin: 02/26/20 21:26 Dose: 25 mg Documented by: Memantine (Namenda) 5 mg PO BID [facility] Last Admin: 02/26/20 21:27 Dose: 5 mg Documented by: Metoclopramide HCl (Reglan) 10 mg IV Q6HP PRN PRN Reason: Nausea And Vomiting Last Admin: 02/25/20 18:02 Dose: 10 mg Documented by: Omeprazole (Prilosec) 20 mg PO ACB [facility] Last Admin: 02/26/20 07:34 Dose: 20 mg Documented by: Ondansetron HCl (Zofran) 4 mg IV Q4HP PRN PRN Reason: Nausea And Vomiting Last Admin: 02/26/20 10:35 Dose: 4 mg Documented by: Oxybutynin Chloride ([facility]itropan Xl) [facility] Last Admin: 02/26/20 09:19 Dose: 15 mg Documented by: Ziprasidone Hcl 80 (Mg) 1 dose PO QPM [facility] Last Admin: 02/26/20 21:28 Dose: Not Given Documented by: Polyethylene Glycol (Miralax) 17 gm PO DAILYP PRN PRN Reason: Constipation Potassium Chloride (Kdur) 40 meq PO UD PRN PRN Reason: Potssium is 3-3.5 Potassium Chloride (Kdur) 40 meq PO UD PRN PRN Reason: Potassium < 3 Senna (Senokot) 2 tab PO DAILYP PRN PRN Reason: Constipation Sodium Chloride (Saline Flush) 10 ml IV Q8 [facility] Last Admin: 02/27/20 04:30 Dose: 10 ml Documented by: A/P Narrative A/P Narrative: A: *UTI (GNB): *AMS(confusion) superimposed on underlying cognitive impairment/early dementia: -follows with Dr. Gonzalez -CT brain neg -Improved *Volume depletion: improved *N/V/D: Nonbloody, watery. likely gastroenteritis -no fecal wbc, no diarrhea/n/v here *Bipolar/PTSD: *Parkinsonism: *HTN: on hydralazine/ARB *Hypothyroidism: on levothyroxine @ 25mcg daily with TSH 0.10 and T4 free 2.0 *GERD: *?PAF & h/o systolic(35%)/diastolic(I) CHF: on digoxin -records do not detail why on digoxin *Hyponatremia: resolved P: -Rocephin pending UC -cont psych meds -hold levothyroxine and f/u outpt -pt/ot -CM for placement -ppx: Lovenox/home PPI Time Spent With Patient Time: Total time spent is greater than 50% in coordination of care (as documented) at patient's floor/unit and/or counseling patient: [facility] Deep Vein Thrombosis/Pulmonary Embolism Present on Admission: No
[2020-02-27 08:06] LABS: ALT/SGPT 13 U/l (0-40); AST/SGOT 15 U/l (0-37); Albumin 3.4 gm/dL (3.2-5.2); Albumin/Globulin Ratio 1.5 (1.0-2.3); Alkaline Phosphatase 82 U/L (39-117); Bilirubin,Direct < 0.2 mg/dL (0.0-0.3); Bilirubin,Total 0.2 mg/dL (0.0-1.0); Calcium 8.8 mg/dl (8.6-10.4); Carbon Dioxide 27 mmol/L (22-30); Chloride 101 mmol/L (96-108); Globulin 2.3 gm/dL (2.2-3.7); Glomerular Filtration Rate 94; Glucose 104 mg/dL (70-105); Lactate Dehydrogenase 149 U/L (94-250); Phosphorous 2.5 mg/dL (2.7-4.5); Triglycerides 54 mg/dl (<150); Uric Acid 3.4 mg/dL (2.5-8.0)
[2020-02-27 08:11] LABS: Blood Urea Nitrogen 10 mg/dl (8-23)
[2020-02-27] MEDS: OMEPRAZOLE 20 MG CAPSULE PO SCH (08:31)
[2020-02-27] MEDS: LEVOTHYROXINE 25 MCG TABLET PO SCH (08:31)
[2020-02-27] MEDS: ONDANSETRON 4 MG/2 ML VIAL IV PRN (08:32)
[2020-02-27] MEDS: BENZTROPINE 1 MG TABLET PO SCH ×2 (08:43→20:22)
[2020-02-27] MEDS: OXYBUTYNIN CHLORIDE 5 MG TAB.XL.24H PO SCH (08:44)
[2020-02-27] MEDS: LOSARTAN 25 MG TABLET PO SCH ×2 (08:44→20:21)
[2020-02-27] MEDS: lamoTRIgine 25 MG TABLET PO SCH ×2 (08:45→20:22)
[2020-02-27] MEDS: AMANTADINE HCL 100 MG CAPSULE PO SCH ×2 (08:45→20:22)
[2020-02-27] MEDS: hydrALAZINE 25 MG TABLET PO SCH ×2 (08:45→20:22)
[2020-02-27] MEDS: DONEPEZIL 10 MG TABLET PO SCH (08:45)
[2020-02-27] MEDS: GABAPENTIN 300 MG CAPSULE PO SCH ×3 (08:46→20:21)
[2020-02-27] MEDS: ACETAMINOPHEN 325 MG TABLET PO SCH ×4 (08:46→20:21)
[2020-02-27] MEDS: ENOXAPARIN 40 MG/0.4 ML SYRINGE SQ SCH (08:47)
[2020-02-27] MEDS: MEMANTINE 10 MG TABLET PO SCH ×2 (08:47→20:22)
[2020-02-27] MEDS: cefTRIAXone 1 GM VIAL IV SCH (08:48)
--- NOTE | 2020-02-27 11:11 | Discharge Summary ---
Discharge Provider Provider Patient information: Note initiated : 02/27/20 at 11:10 am Service Date, if different from initiated Date: [] Patient: Lena Baez 69 y/o F admitted on 02/25/20 for vomiting. Chief Complaint: [] Date of admission: 02/25/20 16:20 Discharge date: 02/28/20 Primary care physician: Maral Palma Consults: 02/25/20 Consult to Physician [CONS] Stat Comment: Consulting Provider: Taye Viveros Reason For Exam: Physician to Consult Discharge Meds Discharge Medications Home Medications digoxin 125 mcg (0.125 mg) tablet 125 mcg PO QDAY 11/28/19 [History Confirmed 02/25/20 Last Taken Unknown] donepezil 10 mg tablet 10 mg PO QDAY 11/28/19 [History Confirmed 02/25/20 Last Taken Unknown] hydralazine 50 mg tablet 25 mg PO BID tab 11/28/19 [History Confirmed 02/25/20 Last Taken Unknown] memantine 5 mg tablet 5 mg PO BID 11/28/19 [History Confirmed 02/25/20 Last Taken Unknown] acetaminophen 325 mg tablet 650 mg PO QID 01/22/20 [History Confirmed 02/25/20 Last Taken Unknown] atorvastatin 10 mg tablet 10 mg PO QHS tab 01/22/20 [History Confirmed 02/25/20 Last Taken Unknown] docusate calcium 240 mg capsule 240 mg PO QHS 01/22/20 [History Confirmed 02/25/20 Last Taken Unknown] ergocalciferol (vitamin D2) 1,250 mcg (50,000 unit) capsule See Rx Instructions .ROUTE .COMPLEX 01/22/20 [History Confirmed 02/25/20 Last Taken Unknown] gabapentin 600 mg tablet 600 mg PO TID tab 01/22/20 [History Confirmed 02/25/20 Last Taken Unknown] meloxicam 15 mg tablet 15 mg PO QAM tab 01/22/20 [History Confirmed 02/25/20 Last Taken Unknown] omeprazole 20 mg capsule,delayed release 20 mg PO QAM cap 01/22/20 [History Confirmed 02/25/20 Last Taken Unknown] oxybutynin chloride 15 mg tablet,extended release 24 hr 15 mg PO QAM tab 01/22/20 [History Confirmed 02/25/20 Last Taken Unknown] amantadine HCl 100 mg PO BID 02/25/20 [History Confirmed 02/25/20 Last Taken Unknown] benztropine 0.5 mg PO BID 02/25/20 [History Confirmed 02/25/20 Last Taken Unknown] lamotrigine 25 mg PO BID 02/25/20 [History Confirmed 02/25/20 Last Taken Unknown] losartan 25 mg PO BID 02/25/20 [History Confirmed 02/25/20 Last Taken Unknown] ziprasidone HCl 80 mg PO QPM 02/25/20 [History Confirmed 02/25/20 Last Taken Unknown] COURSE Hospital Course Hospital course: History of present illness: Ms. Baez is a 69 year old F Mateo to the ED with nausea vomiting diarrhea. Patient does have history of mild cognitive impairment or early dementia. Patient is a poor historian. History is obtained from patient and chart as vahe ayala is unavailable at the moment. Sounds like she is*developed nausea vomiting yesterday and diarrhea. She describes the vomitus as yellow and clear. Diarrhea is watery and dark but no blood. She has a crampy abdominal pain. Per the family she has had some confusion. Per note she does have a history of at least mild cognitive impairment and saw Dr. Ballesteros in past and now Dr. gonzalez for memory medications. Unable to tell if she is on new medication she seemed states she is on some new cardiac medications but cannot remember. She is on digoxin but unable to tell me if she has atrial fibrillation. In the ED she had a CT of the head and abdomen Jack which were unremarkable. She had urinalysis consistent with UTI. Patient does describe dysuria. Patient does live alone. Has occasional cough of clear sputum. Chest x-ray unremarkable. When I visited her she was alert and oriented x4 and in discussion with the nurse she seems to be clear but then occasionally seems confused. 02/25 Patient had a formed stool last night, unable to test for C. difficile. No issues overnight. Patient answering very few of my questions otherwise just looks at me. 02/26 Slept well. Seems to be feeling better today. Has occasional headache but otherwise no complaints. Urine culture growing E. coli pansensitive. 02/27 Sleeping well. No new events or complaints. Stable for discharge. Given patient's significant comorbidities and cognitive impairment patient is high risk for readmission A: *UTI (E.coli): *AMS(confusion) superimposed on underlying cognitive impairment/early dementia: -follows with Dr. Gonzalez -CT brain neg -Improved *Volume depletion: improved *N/V/D: Nonbloody, watery. likely gastroenteritis -no fecal wbc, no diarrhea/n/v here *Bipolar/PTSD: *Parkinsonism: *HTN: on hydralazine/ARB *Hypothyroidism: on levothyroxine @ 25mcg daily with TSH 0.10 and T4 free 2.0 *GERD: *?PAF & h/o systolic(35%)/diastolic(I) CHF: on digoxin -records do not detail why on digoxin *Hyponatremia: resolved Discharge diagnosis: UTI confusion superimposed on underlying dementia following depletion Secondary discharge diagnosis: Reported nausea vomiting diarrhea prior admission but none since, bipolar PTSD/Parkinson's/hypertension/hypothyroidism/GERD/heart failure/hyponatremia Time Spent with Patient Time attestation: Total time spent providing and/or coordinating discharge services: Time spent: Greater than 30 minutes EXAM Constitutional Vitals: Temp Pulse Resp BP Pulse Ox 98.1 F 70 16 126/69 92 02/27/20 07:14 02/27/20 07:14 02/27/20 07:14 02/27/20 07:14 02/27/20 07:14 Discharge Data Data Completed and Pending Labs on day of discharge: Labs from last 24 hours 02/27/20 06:08 Sodium 137 Potassium 4.4 Chloride 101 Carbon Dioxide 27 Anion Gap 9.0 BUN 10 Creatinine 0.6 GFR Calculation 94 Glucose 104 Uric Acid 3.4 Calcium 8.8 Phosphorus 2.5 L Magnesium 1.8 Total Bilirubin 0.2 Direct Bilirubin < 0.2 GGT 28 AST 15 ALT 13 Alkaline Phosphatase 82 Lactate Dehydrogenase 149 Total Protein 5.7 L Albumin 3.4 Globulin 2.3 Albumin/Globulin Ratio 1.5 Triglycerides 54 Discharge Plan Patient/Caregiver Discharge Instructions Activity: as per physical therapy Diet: Regular Diet Prescriptions: Continued memantine 5 mg tablet 5 mg PO BID RF: 0 digoxin 125 mcg (0.125 mg) tablet 125 mcg PO QDAY RF: 0 donepezil 10 mg tablet 10 mg PO QDAY RF: 0 hydralazine 50 mg tablet 25 mg PO BID RF: 0 acetaminophen 325 mg tablet 650 mg PO QID RF: 0 ergocalciferol (vitamin D2) 1,250 mcg (50,000 unit) capsule See Rx Instructions .ROUTE .COMPLEX RF: 0 oxybutynin chloride 15 mg tablet extended release 24hr 15 mg PO QAM RF: 0 omeprazole 20 mg capsule,delayed release(DR/EC) 20 mg PO QAM RF: 0 gabapentin 600 mg tablet 600 mg PO TID RF: 0 atorvastatin 10 mg tablet 10 mg tablet 10 mg PO QHS RF: 0 meloxicam 15 mg tablet 15 mg PO QAM RF: 0 docusate calcium 240 mg capsule 240 mg PO QHS RF: 0 ziprasidone HCl 80 mg capsule 80 mg PO QPM RF: 0 benztropine 0.5 mg tablet 0.5 mg PO BID RF: 0 lamotrigine 25 mg tablet 25 mg PO BID RF: 0 amantadine HCl 100 mg Capsule 100 mg PO BID RF: 0 losartan 25 mg Tablet 25 mg PO BID RF: 0 Discontinued levothyroxine 25 mcg capsule 25 mcg PO QAM RF: 0 Follow Up Plan Follow up with: Maral Palma ARNP [Primary Care Provider] - (Levothyroxine stopped given thyroid function testing. Follow-up with PCP and future labs) Patient Disposition: Xfer SNF Rehab Potential: Undetermined I certify that the patient requires SNF services: Yes Overall status at discharge: patient is progressing back to baseline Discharge Orders: Discharge Order (Routine); Ordered 02/28/20 Ordered By: Taye Viveros [facility] Deep Vein Thrombosis/Pulmonary Embolism Present on Admission: No
[2020-02-27] MEDS: DIGOXIN 125 MCG TABLET PO SCH (13:34)
[2020-02-27] MEDS: ATORVASTATIN 10 MG TABLET PO SCH (20:21)
[2020-02-27] MEDS: DOCUSATE SODIUM 100 MG CAPSULE PO SCH (20:21)
[2020-02-27] MEDS: ZIPRASIDONE HCL 80 MG PO SCH (20:23)
[2020-02-28] MEDS: 0.9 % SODIUM CHLORIDE 10 ML SYRINGE IV SCH ×3 (04:15→21:03)
--- NOTE | 2020-02-28 07:45 | Internal Med Progress Note ---
SUBJECTIVE Subjective Patient information: Note initiated : 02/28/20 at 7:44 am Service Date, if different from initiated Date: [] Patient: Lena Baez a 69 y/o F admitted on 02/25/20 for vomiting. Chief Complaint: [] Interval history: History of present illness: Ms. Baez is a 69 year old F Mateo to the ED with nausea vomiting diarrhea. Patient does have history of mild cognitive impairment or early dementia. Patient is a poor historian. History is obtained from patient and chart as caregiver is unavailable at the moment. Sounds like she is*developed nausea vomiting yesterday and diarrhea. She describes the vomitus as yellow and clear. Diarrhea is watery and dark but no blood. She has a crampy abdominal pain. Per the family she has had some confusion. Per note she does have a history of at least mild cognitive impairment and saw Dr. Gómez'abhay in past and now Dr. gonzalez for memory medications. Unable to tell if she is on new medication she seemed states she is on some new cardiac medications but cannot remember. She is on digoxin but unable to tell me if she has atrial fibrillation. In the ED she had a CT of the head and abdomen Jack which were unremarkable. She had urinalysis consistent with UTI. Patient does describe dysuria. Patient does live alone. Has occasional cough of clear sputum. Chest x-ray unremarkable. When I visited her she was alert and oriented x4 and in discussion with the nurse she seems to be clear but then occasionally seems confused. 02/25 Patient had a formed stool last night, unable to test for C. difficile. No issues overnight. Patient answering very few of my questions otherwise just looks at me. 02/26 Slept well. Seems to be feeling better today. Has occasional headache but otherwise no complaints. 02/27 Sleeping well. No new events or complaints. Review of Systems: denies fever/chills/nausea/vomiting/chest or abdominal pain/cough/dyspnea/diarrhea. Otherwise see above. Constitutional Vitals: Vital Signs Temp Pulse Resp BP Pulse Ox 98.0 F 72 12 125/72 94 02/28/20 03:56 02/28/20 03:56 02/28/20 03:56 02/28/20 03:56 02/28/20 03:56 Period Temp Pulse Resp BP Sys/Brito Pulse Ox Last 24 Hr 97.3 F-98.6 F 58-74 12-16 124-135/68-73 93-96 Intake and Output 02/27/20 02/28/20 02/28/20 21:59 05:59 13:59 Intake Total 360 300 Output Total 250 550 Balance 110 -250 Weight 52.617 kg Intake & Output: Intake & Output 02/27/20 02/28/20 02/28/20 21:59 05:59 13:59 Intake Total 360 300 Output Total 250 550 Balance 110 -250 Weight 52.617 kg Intake: Oral 360 300 Output: Void Amount 250 550 Other: Meal Dinner Percent of Meal Consumed 75% Urine Appearance Clear Clear Urine Color Pale Bright Yellow # Voids 1 1 Exam: General: Alert, Awake, No acute Distress Eyes/N/T: EOMI, Head/Neck: neck supple, CV: RRR, 2/6SM Pulm: Clear b/l, no wheezing/rhonchi/rales Abd: soft, nontender, +BS x4 Ext: no clubbing/cyanosis/edema Neuro: A&Ox4, no focal deficits, moves all extremities, Skin: warm/dry OBJ DATA Labs CBC & Chem 7: 02/26/20 05:55 02/27/20 06:08 Labs: Abnormal Lab Results 02/27/20 02/26/20 02/26/20 06:08 05:55 05:55 [place] % (Auto) 15.8 H [place] # (Auto) 1.12 H Seg Neutrophils % Lymphocytes % Sodium Chloride Anion Gap BUN 7 L Glucose Calcium 8.5 L Phosphorus 2.5 L 2.2 L NT-Pro-B Natriuret Pep Total Protein 5.7 L 5.5 L TSH Free T4 Urine Ketones Urine Occult Blood Urine Nitrate Ur Leukocyte Esterase Urine RBC Urine WBC Urine Bacteria 02/25/20 02/25/20 02/25/20 10:31 09:12 09:12 [place] % (Auto) [place] # (Auto) Seg Neutrophils % Lymphocytes % Sodium Chloride Anion Gap BUN Glucose Calcium Phosphorus NT-Pro-B Natriuret Pep Total Protein TSH 0.10 L Free T4 2.00 H Urine Ketones 20 A Urine Occult Blood 0.2 A Urine Nitrate Pos A Ur Leukocyte Esterase 500 A Urine RBC 16 H Urine WBC > 182 H Urine Bacteria Few A 02/25/20 02/25/20 02/25/20 09:12 09:12 09:12 [place] % (Auto) [place] # (Auto) Seg Neutrophils % 86 H Lymphocytes % 10 L Sodium 126 L Chloride 85 L Anion Gap 17.0 H BUN Glucose 111 H Calcium Phosphorus NT-Pro-B Natriuret Pep 4630.0 H Total Protein TSH Free T4 Urine Ketones Urine Occult Blood Urine Nitrate Ur Leukocyte Esterase Urine RBC Urine WBC Urine Bacteria Meds: Medications Acetaminophen (Tylenol) 650 mg PO QID [facility] Last Admin: 02/27/20 20:21 Dose: 650 mg Documented by: Albuterol/Ipratropium (Duoneb) 3 ml NEB Q4HP PRN PRN Reason: Shortness Of Breath Amantadine HCl (Amantadine) 100 mg PO BID [facility] Last Admin: 02/27/20 20:22 Dose: 100 mg Documented by: Atorvastatin Calcium (Lipitor) 10 mg PO [facility] Last Admin: 02/27/20 20:21 Dose: 10 mg Documented by: Benztropine Mesylate (Cogentin) 0.5 mg PO BID [facility] Last Admin: 02/27/20 20:22 Dose: 0.5 mg Documented by: Ceftriaxone Sodium (Rocephin) 1 gm IV DAILY [facility] Last Admin: 02/27/20 08:48 Dose: 1 gm Documented by: Digoxin (Lanoxin) 125 mcg PO DAILY@1400 [facility] Last Admin: 02/27/20 13:34 Dose: 125 mcg Documented by: Diphenhydramine HCl (Benadryl) 25 mg IV Q4-6HP PRN PRN Reason: Nausea Docusate Sodium (Colace) 200 mg PO [facility] Last Admin: 02/27/20 20:21 Dose: 200 mg Documented by: Donepezil HCl (Aricept) 10 mg PO QDAY [facility] Last Admin: 02/27/20 08:45 Dose: 10 mg Documented by: Enoxaparin Sodium (Lovenox) 40 mg SQ DAILY [facility] Last Admin: 02/27/20 08:47 Dose: 40 mg Documented by: Gabapentin (Neurontin) 600 mg PO TID [facility] Last Admin: 02/27/20 20:21 Dose: 600 mg Documented by: Hydralazine HCl (Apresoline) 25 mg PO BID [facility] Last Admin: 02/27/20 20:22 Dose: 25 mg Documented by: Potassium Chloride 40 meq/ (Dextrose) 520 mls @ 130 mls/hr IV UD PRN PRN Reason: Potassium < 3 Magnesium Sulfate (Magnesium Sulfate) 2 gm in 50 mls @ 50 mls/hr IV UD PRN PRN Reason: Magnesium </= 1.6 Lamotrigine (Lamictal) 25 mg PO BID [facility] Last Admin: 02/27/20 20:22 Dose: 25 mg Documented by: Levothyroxine Sodium (Synthroid) 25 mcg PO QAMAC [facility] Last Admin: 02/27/20 08:31 Dose: 25 mcg Documented by: Losartan Potassium (Cozaar) 25 mg PO BID [facility] Last Admin: 02/27/20 20:21 Dose: 25 mg Documented by: Memantine (Namenda) 5 mg PO BID [facility] Last Admin: 02/27/20 20:22 Dose: 5 mg Documented by: Metoclopramide HCl (Reglan) 10 mg IV Q6HP PRN PRN Reason: Nausea And Vomiting Last Admin: 02/25/20 18:02 Dose: 10 mg Documented by: Omeprazole (Prilosec) 20 mg PO ACB [facility] Last Admin: 02/27/20 08:31 Dose: 20 mg Documented by: Ondansetron HCl (Zofran) 4 mg IV Q4HP PRN PRN Reason: Nausea And Vomiting Last Admin: 02/27/20 08:32 Dose: 4 mg Documented by: Oxybutynin Chloride ([facility]it[facility]an Xl) [facility] [place] [facility] Admin: 02/27/20 08:44 Dose: 15 mg Documented by: Ziprasidone Hcl 80 (Mg) 1 dose PO QPM [facility] Last Admin: 02/27/20 20:23 Dose: Not Given Documented by: Polyethylene Glycol (Miralax) 17 gm PO DAILYP PRN PRN Reason: Constipation Potassium Chloride (Kdur) 40 meq PO UD PRN PRN Reason: Potssium is 3-3.5 Potassium Chloride (Kdur) 40 meq PO UD PRN PRN Reason: Potassium < 3 Senna (Senokot) 2 tab PO DAILYP PRN PRN Reason: Constipation Sodium Chloride (Saline Flush) 10 ml IV Q8 [facility] Last Admin: 02/28/20 04:15 Dose: 10 ml Documented by: A/P Narrative A/P Narrative: A: *UTI (E.coli): *AMS(confusion) superimposed on underlying cognitive impairment/early dementia: -follows with Dr. Gonzalez -CT brain neg -Improved *Volume depletion: improved *N/V/D: Nonbloody, watery. likely gastroenteritis -no fecal wbc, no diarrhea/n/v here *Bipolar/PTSD: *Parkinsonism: *HTN: on hydralazine/ARB *Hypothyroidism: on levothyroxine @ 25mcg daily with TSH 0.10 and T4 free 2.0 *GERD: *?PAF & h/o systolic(35%)/diastolic(I) CHF: on digoxin -records do not detail why on digoxin *Hyponatremia: resolved P: -awaiting placement -Rocephin -cont psych meds -hold levothyroxine and f/u outpt -pt/ot -CM for placement -ppx: Lovenox/home PPI Time Spent With Patient Time: Total time spent is greater than 50% in coordination of care (as docum ented) at patient's floor/unit and/or counseling patient: QUALITY VTE Deep Vein Thrombosis/Pulmonary Embolism Present on Admission: No
[2020-02-28] MEDS: lamoTRIgine 25 MG TABLET PO SCH ×2 (07:57→21:02)
[2020-02-28] MEDS: OXYBUTYNIN CHLORIDE 5 MG TAB.XL.24H PO SCH (07:58)
[2020-02-28] MEDS: OMEPRAZOLE 20 MG CAPSULE PO SCH (07:58)
[2020-02-28] MEDS: GABAPENTIN 300 MG CAPSULE PO SCH ×3 (07:59→21:02)
[2020-02-28] MEDS: hydrALAZINE 25 MG TABLET PO SCH ×2 (07:59→21:02)
[2020-02-28] MEDS: BENZTROPINE 1 MG TABLET PO SCH ×2 (07:59→21:01)
[2020-02-28] MEDS: LEVOTHYROXINE 25 MCG TABLET PO SCH (08:00)
[2020-02-28] MEDS: ACETAMINOPHEN 325 MG TABLET PO SCH ×4 (08:00→21:01)
[2020-02-28] MEDS: MEMANTINE 10 MG TABLET PO SCH ×2 (08:01→21:01)
[2020-02-28] MEDS: DONEPEZIL 10 MG TABLET PO SCH (08:01)
[2020-02-28] MEDS: ENOXAPARIN 40 MG/0.4 ML SYRINGE SQ SCH (08:02)
[2020-02-28] MEDS: LOSARTAN 25 MG TABLET PO SCH ×2 (08:02→21:02)
[2020-02-28] MEDS: AMANTADINE HCL 100 MG CAPSULE PO SCH ×2 (08:09→21:02)
[2020-02-28] MEDS: POLYETHYLENE GLYCOL 3350 17 GM PACKET PO PRN (08:13)
[2020-02-28] MEDS: cefTRIAXone 1 GM VIAL IV SCH (09:38)
[2020-02-28] MEDS: DIGOXIN 125 MCG TABLET PO SCH (13:29)
[2020-02-28] MEDS: DOCUSATE SODIUM 100 MG CAPSULE PO SCH (21:02)
[2020-02-28] MEDS: ATORVASTATIN 10 MG TABLET PO SCH (21:02)
[2020-02-28] MEDS: ZIPRASIDONE HCL 80 MG PO SCH (21:03)
[2020-02-29] MEDS: 0.9 % SODIUM CHLORIDE 10 ML SYRINGE IV SCH (05:57)
[2020-02-29] MEDS: ACETAMINOPHEN 325 MG TABLET PO SCH (08:58)
[2020-02-29] MEDS: ENOXAPARIN 40 MG/0.4 ML SYRINGE SQ SCH (08:58)
[2020-02-29] MEDS: BENZTROPINE 1 MG TABLET PO SCH (08:59)
[2020-02-29] MEDS: LOSARTAN 25 MG TABLET PO SCH (08:59)
[2020-02-29] MEDS: MEMANTINE 10 MG TABLET PO SCH (09:00)
[2020-02-29] MEDS: GABAPENTIN 300 MG CAPSULE PO SCH (09:00)
[2020-02-29] MEDS: AMANTADINE HCL 100 MG CAPSULE PO SCH (09:00)
[2020-02-29] MEDS: OXYBUTYNIN CHLORIDE 5 MG TAB.XL.24H PO SCH (09:00)
[2020-02-29] MEDS: LEVOTHYROXINE 25 MCG TABLET PO SCH (09:01)
[2020-02-29] MEDS: hydrALAZINE 25 MG TABLET PO SCH (09:01)
[2020-02-29] MEDS: OMEPRAZOLE 20 MG CAPSULE PO SCH (09:01)
[2020-02-29] MEDS: lamoTRIgine 25 MG TABLET PO SCH (09:01)
[2020-02-29] MEDS: POLYETHYLENE GLYCOL 3350 17 GM PACKET PO PRN (09:01)
[2020-02-29] MEDS: DONEPEZIL 10 MG TABLET PO SCH (09:01)
[2020-02-29] MEDS: cefTRIAXone 1 GM VIAL IV SCH (09:08)
== END 2020-02-29 11:50 | DRG 690 ==
LOC: ED 08:48 → MEDSUR 16:20
PROVIDERS: ADMIT Internal Medicine; ATTEND Internal Medicine